=== PATIENT | female | born 1985 | race Hispanic/Latino ===

== ENCOUNTER → 2019-06-16 | Outpatient (CLI) | payer OTHER ==
--- NOTE | 2019-06-16 15:28 | Diagnostic Imaging Report ---
MRI SPINE LUMBAR WO HISTORY: Low back, left leg pain COMPARISON: None. TECHNIQUE: Sagittal T1, sagittal T2, sagittal STIR, axial T2, coronal T2, and axial proton density weighted images of the lumbar spine were obtained without contrast. DISCUSSION: Number of non-rib bearing lumbar vertebral bodies: 5. Alignment: Normal lordosis. No scoliosis. Vertebrae: No fractures, infection or neoplasm. Conus medullaris: Normal, ends at T12-L1. Cauda equina: No masses or arachnoiditis. Posterior paraspinal muscles: Well preserved. No signal abnormalities. Soft tissues: No signal abnormalities. Mild disc degeneration at L5-S1 is associated with a posterior annular fissure. T12-L1: Patent canal and foramina. L1-L2: Patent canal and foramina. L2-L3: Patent canal and foramina. L3-L4: Patent canal and foramina. L4-L5: Patent canal and foramina. L5-S1: Mild bilateral foraminal stenoses due to disc bulge and facet arthrosis, right greater than left. No significant canal stenosis. IMPRESSION: 1. Mild L5-S1 disc degeneration with posterior annular fissure. 2. Mild bilateral L5-S1 degenerative foraminal stenoses, right greater than left. 3. No significant canal stenosis. Signed by: Dr. Kishore Gibson M.D. on 06/16/2019 3:24 PM
== END ==
LOC: MRI 13:30
PROVIDERS: ATTEND Internal Medicine
DX: M54.32 Sciatica, left side (principal)
CPT/HCPCS: 72148

== ENCOUNTER 2024-07-08 20:55 | Emergency (ER) | payer BC, OTHER ==
[~2024-07-08] VITALS: Ht 157.5 cm; Wt 57.2 kg
[2024-07-08 20:55] VITALS: RESP 20; TEMP 100
[2024-07-08] MEDS ORDERED: ONDANSETRON HCL INJ 2MG/ML 2ML 2 MG/ML VIAL ONE (21:15)
[2024-07-08] MEDS ORDERED: SODIUM CHLORIDE 0.9% 1000ML 1,000 ML ONE (21:15)
[2024-07-08] MEDS: ONDANSETRON HCL INJ 2MG/ML 2ML 2 MG/ML VIAL IV STA (21:22)
[2024-07-08] MEDS: SODIUM CHLORIDE 0.9% 1000ML 1,000 ML IV ONE (21:23)
[2024-07-08] MEDS: Morphine 4mg INJECTION 4 MG/ML INJ IV ONE (21:23)
[2024-07-08 21:55] LABS: BASOPHILS % 0.1 % (0.0-1.0); EOSINOPHILS % 0.1 % (0.0-6.0); HEMATOCRIT 38.9 % (34.2-44.1); HEMOGLOBIN 12.8 g/dL (12.0-16.0); LYMPHOCYTES # (AUTO) 0.5 (1.0-3.2); LYMPHOCYTES % 3.5 % (18.0-39.1); MEAN CORPUSCULAR HEMOGLOBIN 31.5 pg (28-32); MEAN CORPUSCULAR HGB CONC 32.9 g/dL (31-35); MEAN CORPUSCULAR VOLUME 95.8 fL (81-99); MONOCYTES # (AUTO) 0.1 (0.2-0.8); MONOCYTES % 0.4 % (4.4-11.3); NEUTROPHILS # (AUTO) 12.3 (2.1-6.9); NEUTROPHILS % 95.6 % (38.7-80.0); PLATELET COUNT 216 x10e3/uL (140-360); RED BLOOD COUNT 4.06 x10e6/uL (3.6-5.1); RED CELL DISTRIBUTION WIDTH 12.4 % (11.7-14.4); WHITE BLOOD COUNT 12.81 x10e3/uL (4.8-10.8)
[2024-07-08 22:08] LABS: ALBUMIN 3.9 g/dL (3.5-5.0); ALBUMIN/GLOBULIN RATIO 1.3 (0.8-2.0); ANION GAP 14.4 mmol/L (8-16); BILIRUBIN,TOTAL 0.9 mg/dL (0.2-1.2); CALCIUM 8.8 mg/dL (8.4-10.2); CREATININE, SERUM 0.83 mg/dL (0.57-1.11)
[2024-07-08 22:09] LABS: LIPASE 23 U/L (8-78); POTASSIUM 3.4 mmol/L (3.5-5.1)
[2024-07-08] MEDS ORDERED: IOPAMIDOL 370 MG/ML 100 ML INFUS..BTL INJ ONE (22:46)
[2024-07-08 22:47] LABS: CLARITY,URINE CLEAR (CLEAR); COLOR,URINE YELLOW (YELLOW)
[2024-07-08 22:48] LABS: BILIRUBIN,URINE NEGATIVE (NEGATIVE); GLUCOSE, URINE NEGATIVE (NEGATIVE); KETONES,URINE NEGATIVE (NEGATIVE); LEUKOCYTE ESTERASE ,URINE NEGATIVE (NEGATIVE); NITRITE,URINE NEGATIVE (NEGATIVE); PH,URINE 7 (5 - 7); PROTEIN,URINE DIPSTICK NEGATIVE (NEGATIVE); URINE UROBILINOGEN 0.2 mg/dL (0.2 - 1)
[2024-07-08 23:20] LABS: WBC,URINE (MAN) 0-5 /HPF (0-5)
[2024-07-08 23:21] LABS: BACTERIA,URINE MODERATE /HPF; EPITHELIAL CELLS,URINE MODERATE /LPF
[2024-07-09] VITALS: PULSE 84
[2024-07-09] MEDS: DICYCLOMINE HCL 20 MG/2 ML VIAL IM ONE (00:16)
[2024-07-09] MEDS ORDERED: PANTOPRAZOLE SO40 MG PO (00:18)
[2024-07-09] MEDS ORDERED: DICYCLOMINE HCL20 MG PO (00:18)
[2024-07-09] MEDS ORDERED: ONDANSETRON ODT4 MG SL (00:18)
[2024-07-09 00:54] VITALS: BP 110/75; O2SAT 100
== END 2024-07-09 00:46 | disposition home or self-care (01) ==
LOC: ER 21:00
DX: R50.9 Fever, unspecified (principal); R10.11 Right upper quadrant pain; R10.32 Left lower quadrant pain; R11.2 Nausea with vomiting, unspecified; R19.7 Diarrhea, unspecified; Z11.52 Encounter for screening for COVID-19
CPT/HCPCS: 36415; 74177; 76705; 80053; 81001; 83690; 84484; 84702; 85025; 93005; 99284; J0500; J2270; J2405; J2470; J7030; Q9967; U0002